=== PATIENT | male | born 1935 | race Caucasian/White ===

== ENCOUNTER 2018-07-04 11:35 | Emergency (ER) | payer MEDICARE, BC, SELFPAY ==
[2018-07-04] VITALS (80 sets, daily range): BP systolic 71–140; BP diastolic 40–90; PULSE 51–66; RESP 11–23; TEMP 36.2–36.5; O2SAT 92–99
--- NOTE | 2018-07-04 11:47 | DI.REPORT_ITS ---
SYMPTOMS/DIAGNOSIS: SHORTNESS OF BREATH PA AND LATERAL CHEST: The lungs are well expanded and free of infiltrate. There is no pleural effusion. The heart is not enlarged. The hilar structures, mediastinum and tracheal air column are intact. 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 SUMMARY: No evidence of acute cardiopulmonary disease.
--- NOTE | 2018-07-04 11:48 | DI.RPTCT_ITS ---
SYMPTOMS/DIAGNOSIS: ALTERED MENTAL STATUS CRANIAL CT: A noncontrast enhanced examination was performed. There is no evidence of an intra or extra-axial hemorrhage. Prominent atrophic changes are demonstrated and dilated lateral third ventricles are identified. There are regions of diminished absorption in the frontoparietal white matter bilaterally consistent with small vessel disease. There is no evidence of hemorrhage, mass or infarct. There is no evidence of a skull fracture. The paranasal sinuses are intact. There is no evidence of a mastoid effusion. SUMMARY: There are moderately severe atrophic changes and evidence of small vessel disease. There is considerable dilatation of the lateral ventricle and the possibility of normal pressure hydrocephalus could not be excluded.
--- NOTE | 2018-07-04 11:51 | ED.GENADUL_ITS ---
Disposition Clinical Impression: Urinary tract infection, Normal pressure hydrocephalus Disposition: AGAINST MEDICAL ADVICE Condition: Serious Instructions: Urinary Tract Infection in Men (ED), Hydrocephalus (GEN) Additional Instructions: Seek immediate medical attention if patient has any worsening of symptoms, continued syncope, any concerns she may have. Otherwise patient sit should see his primary care provider emergently as soon as he returns back to [place]. Prescriptions: Cephalexin [Keflex] 500 mg PO Q6H #28 cap Referrals: Primary Care Provider [Outside] - 1 day (It is recommended that you follow-up with patient's primary care office immediately upon returning home) Medical Decision Making - Lab Data Results reviewed for labs ordered during visit: Yes Interpretation: other (EKG reviewed with Dr. Schultz, please see her interpretation) - Radiology Data Radiology results: report reviewed, image reviewed - Medical Decision Making Patient presenting to the emergency department for chief complaint of lethargy/ generalized weakness. Patient has some difficulty with memory and communicating speech. Patient does seem to remember some events but other events he has a difficult time forming words and communicating what is going on. Patient has globalized weakness, denies any pain or discomfort, states that he has recently started on Cipro for an unknown reason, and he states that he was sent over by the dialysis center. Physical exam does not reveal any specific findings beyond generalized weakness. staffing specialist was able to contact the dialysis center and they stated that sent patient to dialysis Center via RCT but she found him cold clammy and slumped over this morning. Patient does report to RN that over the past week or so he has been having some difficulty finding words. There is concern for possible intracranial findings including uremia, uremic encephalopathy, infection/uti. Previous records were obtained from [facility] and also states that patient deals with alcoholism. Lab testing was ordered for also evaluation of ammonia. Review of labs show baseline anemia the patient has had in the past, elevated BUN and creatinine, no leukocytosis, no elevated ammonia, urinary findings consistent with urinary tract infection, negative initial troponin. Head CT shows some mild prominence of the ventricles and atrophy otherwise no acute findings on chest x-ray. Patient reassessed and shows continued generalized weakness. Did call and speak with the dialysis center nurse whom states that patient is normally a 1 person standby assist and they needed multiple people to get him out of the [facility] car and that the [facility] milk pickup driver stated that patient's reported him slumped over the piano. Dialysis center nurse also states for the past 3 visits they were not able to draw any water off of the patient due to patient showing signs of fluid deficit. There is concern for dehydration. Patient given 500 mL bolus of normal saline. Was able to finally speak with the daughter whom states that patient was not slumped over the piano but that patient had attempted to stand up and became lightheaded and had to sit down so he did not pass out. Daughter states that patient has been having generalized weakness for the past week and was diagnosed with a urinary tract infection at [facility] and placed upon Cipro. She states that they are preparing to leave for [place] today and the patient does have dialysis scheduled for Sunday. While patient was receiving 500 mL's of fluid I did call and speak with Dr. Blakely urologist in regards to patient's urinary tract infection and nephrostomy tube. Reviewed with him sensitivities from previous culture and he stated for patient to receive Rocephin in the emergency department and then consideration of patient being placed upon Keflex once dialysis is resumed if decision to hold dialysis is made. After finishing 500 mL's of fluid patient's blood pressure did improve but when RN attempted to perform orthostatic vital signs patient did have significant drop in pressure to 76/48 from lying to sitting position. I feel that most of patient's generalized weakness is coming from severe fluid deficit and dehydration so patient ordered another 500 mL's of fluid to reassess patient's condition. After additional fluid bolus patient was reassessed again and did show significant tilt with lying pressure being 118/58 and heart rate of 61 and standing pressure of 71/40 severe dizziness to the point patient had to sit down. Did consult with hospitalist in regards to admission of the patient for hydration versus continuing fluid boluses in the ER. Dr. Bird recommended additional 1 L of fluid and reassessment of patient to see if patient would be capable of discharge. I did speak with daughter in regards to this. She states that they would prefer to be discharged as they have a long car ride today back to [facility] where patient has his normally establish care. I informed her that we can reassess patient situation but right now my working diagnosis is severe dehydration that may need admission. Patient was given another 750 mL's of LR and reassess. Patient did show some slight signs of improvement with standing pressure being 90/41 but patient remains symptomatic. I did inform family once they arrived to the emergency department along with patient that my recommendation was to admit patient for further gentle hydration and monitoring given that he is still symptomatic. Daughter did state that she has noticed that patient's symptoms being worse over the past couple days with the extreme heat and states that patient has not been eating or drinking as much. We did discuss the risks versus benefit of leaving and traveling to [facility] including unforeseen worsening change in patient's condition that could result in or disability. After thorough discussion with patient who at this time is alert oriented and competent to make decisions, and family members they state that they would like to leave AGAINST MEDICAL ADVICE and travel to [facility] where patient has his normal primary care providers in doctors familiar to him. Family states clear understanding of risk of transporting by private vehicle. To expedite care if patient would decline patient was given copies of labs, imaging, along with my note. I also did discuss with family CT finding of normal pressure hydrocephalus. Patient was encouraged to continue his Cipro as he only has 1 more dose left and then begin Keflex on Sunday. After thorough discussion of plan of care and diagnosis family signed paperwork and patient left via wheelchair. History of Present Illness - General Chief complaint: Chest Pain Stated complaint: [place] Time Seen by Provider: 07/04/18 11:36 Source: patient, EMS, RN notes reviewed, old records reviewed Mode of arrival: EMS Limitations: altered mental status - History of Present Illness Initial comments: Patient presenting to the emergency department via EMS for complaint of altered mental status/lethargy. EMS was called to dialysis center due to patient's condition and states that they did not dialyze him. Patient's significant other reported to EMS that he did complain of some shortness of breath and chest pain yesterday evening. Patient is alert to person and place but is a poor historian of his medical condition making it difficult. Patient used to live in the area but now lives in [facility]. Patient states that he is normally seen at the [facility] and that his primary care provider is Dr. Arambula -: unknown Treatments Prior to Arrival: none - Related Data Benzonatate 100 mg PO TID PRN 07/04/18 Cephalexin [Keflex] 500 mg PO Q6H #28 cap 07/04/18 Finasteride 5 mg PO DAILY 07/04/18 Lisinopril 10 mg PO .QHS 07/04/18 Sevelamer Carbonate [Renvela] 800 mg PO TID 07/04/18 Simvastatin [Zocor] 20 mg PO DAILY 07/04/18 Allergies Allergy/AdvReac Type Severity Reaction Status Date / Time hydralazine Allergy Unverified 07/04/18 11:51 hydrochlorothiazide Allergy Unverified 07/04/18 11:51 Review of Systems Constitutional: no symptoms reported Respiratory: see HPI, shortness of breath Cardiovascular: as per HPI, chest pain Gastrointestinal: denies: abdominal pain Genitourinary: other (Patient has indwelling nephrostomy tube, patient states low urine output this morning). denies: dysuria Neurological: as per HPI Past Medical History - Past Medical History Medical history: ESRD, hyperlipidemia, hypertension Dialysis, chronic alcoholism, benign prostatic hyperplasia, congenital hydronephrosis. Surgical history: other (Nephrostomy tube) Family history: CAD/AZ, diabetes - Social History Smoking status: never smoker Alcohol use: rarely Drug use: none Living Situation: lives with family General Exam - General Limitations: altered mental status General appearance: alert, in no apparent distress - Head Head exam: Present: atraumatic, normocephalic - Eye Eye exam: Present: PERRL, EOMI. Absent: scleral icterus, conjunctival injection , periorbital swelling, periorbital tenderness - ENT ENT exam: Present: mucous membranes dry - Neck Neck exam: Present: full ROM. Absent: tenderness, meningismus - Respiratory Respiratory exam: Present: normal lung sounds bilaterally. Absent: respiratory distress, wheezes, rales, rhonchi, stridor - Cardiovascular Cardiovascular Exam: Present: regular rate, normal rhythm, normal heart sounds. Absent: bradycardia, tachycardia, systolic murmur, diastolic murmur, rubs, gallop, clicks - GI/Abdominal GI/Abdominal exam: Present: soft, hypoactive bowel sounds. Absent: tenderness, guarding, rebound, rigid, diminished bowel sounds, organomegaly, mass, bruit, pulsatile mass - Back Exam Back exam: Present: other (Patient has right nephrostomy tube in place) - Neurological Exam Neurological exam: Present: alert, oriented X3, CN II-XII intact. Absent: altered, motor sensory deficit - Expanded Neurological Exam No standard instances Neurological exam: Absent: memory loss-remote event, memory loss-recent event, ataxia Patient oriented to: Present: person, place, time - Skin Skin exam: Present: warm, dry, pallor (Mild). Absent: cyanosis, diaphoretic, mottled Course Vital Signs - 24 hr 07/04/18 11:38 Temperature 36.2 C L Pulse 60 Respiratory 13 Rate Blood Pressure 96/54 Pulse Oximetry 98
[2018-07-04 12:02] LABS: Abs Immature Grans 0.05 k/cumm (0.0-0.09); Absolute Basophil Count 0.02 k/cumm (0.0-0.2); Absolute Eosinophil Count 0.09 k/cumm (0.0-0.7); Absolute Lymphocyte Count 0.95 k/cumm (1.2-3.4); Absolute Monocyte Count 0.46 k/cumm (0.11-0.7); Absolute Neutrophil Count 4.41 k/cumm (1.2-6.7); Basophils % 0.3; Eosinophils % 1.5; HCT 36.1 % (40.0-50.0); HGB 11.9 g/dL (13.5-17.5); Immature Grans % 0.8; Lymphocytes % 15.9; Mean Corpuscular Volume 103.1 fL (80-95); Mean Platelet Volume 8.9 fL (8.0-11.0); Monocytes % 7.7; Neutrophils % 73.8; Platelet Count 130 x1000/uL (130-400); RBC Distribution Width 12.4 % (11.8-14.1); White Blood Cell Count 5.98 k/cumm (4.4-10.8)
--- NOTE | 2018-07-04 12:11 | NUR.NOTE ---
Nursing Note: Patient reports changes in his speech over the last week and a half. He says i am having trouble phonateing today. This literary writer notes patient has difficulty finding his words is slow to respond and often trips over his words. He is appropriate in his response and is A&Ox4.
[2018-07-04 12:15] LABS: INR 1.2 (1.0-3.5); PTT Activated 21.9 sec (21.0-31.4); Prothrombin Time 11.3 sec (9.3-10.8)
[2018-07-04 12:16] LABS: Bilirubin Negative (Negative); Blood Moderate (Negative); Clarity Cloudy; Glucose Negative (Negative); Ketones Negative (Negative); Leukocyte Esterase Large (Negative); Nitrite Negative (Negative); Urobilinogen 0.2 EU/dL (Up TO 0.2)
[2018-07-04 12:18] LABS: ALT 18 U/L (12-78); AST 14 U/L (15-37); Albumin 3.4 g/dL (3.4-5.0); Alkaline Phosphatase 86 U/L (46-116); BUN 59 mg/dL (7-18); Bilirubin, Total 0.4 mg/dL (0.2-1.0); Calcium 9.2 mg/dL (8.5-10.1); Chloride 99 mmol/L (98-107); Estimated GFR 4.83 (mL/min/1.73m2); Glucose 137 mg/dL (70-100); Magnesium 2.6 mg/dL (1.8-2.4); Potassium 3.9 mmol/L (3.5-5.1); Sodium 140 mmol/L (136-145); Total Protein 7.6 g/dL (6.4-8.2); Troponin I 0.02 ng/mL (0.00-0.06)
[2018-07-04 12:22] LABS: CREATININE 10.36 mg/dL (0.70-1.30)
[2018-07-04 12:25] LABS: Bacteria Many HPF (Negative); C & S Indicated? Yes; Casts Negative LPF (Negative); Crystals Negative HPF (Negative); Epithelial Cells Negative HPF (Negative); Mucus Negative (Negative); RBC >50 (0-2); WBC >50 HPF (0-5)
[2018-07-04 13:02] LABS: Ammonia 11 umol/L (11-32)
--- NOTE | 2018-07-04 13:25 | NUR.NOTE ---
Nursing Note: Home phone number [phone]. Patient and cell phone number [phone]. Dorita (daughter) cell phone number [phone]. Goes to [facility]; Dr. Ash Arambula physician in [place]. Amber Lujan.
[2018-07-04] MEDS: Normal Saline 500 ML IV ×2 (13:48→15:36)
--- NOTE | 2018-07-04 14:05 | NUR.NOTE ---
Nursing Note: Patient provided a sandwich and apple juice.
[2018-07-04 15:51] LABS: Troponin I < 0.02 ng/mL (0.00-0.06)
[2018-07-04] MEDS: Lactated Ringers 500 ML IV (16:59)
[2018-07-04] MEDS: Lactated Ringers 250 ML 500 ML IV (19:58)
== END 2018-07-04 18:57 | disposition left against medical advice (07) ==
PROVIDERS: Nurse Practitioner Family; Emergency Provider Physician Assistant; PCP Neuromusculoskeletal Medicine & OMM
DX: N39.0 Urinary tract infection, site not specified (principal); G91.9 Hydrocephalus, unspecified; I95.1 Orthostatic hypotension; I12.0 Hypertensive chronic kidney disease with stage 5 chronic kidney disease or end stage renal disease; N18.6 End stage renal disease; Z99.2 Dependence on renal dialysis; Z96.0 Presence of urogenital implants
CPT/HCPCS: 36415; 80053; 87077; 93005; 96361; 96365; 99285; 70450; 71046; 81003; 81015; 82140; 83735; 84484; 85025; 85610; 85730; 87086; 87186; 93010; J0696